=== PATIENT | male | born 1995 | race Caucasian/White ===

== ENCOUNTER 2017-08-10 16:18 | Emergency (ER) | payer OTHER ==
[2017-08-10] MEDS ORDERED: Ketorolac Tromethamine 30 MG/ML VIAL ONE (16:33)
[2017-08-10 16:53] LABS: Bilirubin Negative (Negative); Blood, Urine Negative (Negative); Clarity Clear (Clear); Glucose, Urine (Dipstick) Negative (Negative); Leukocyte Negative (Negative); Nitrite Negative (Negative); Protein, Urine (Dipstick) Negative (Neg-Trace)
[2017-08-10 16:55] LABS: #Basophils 0.2 thou/uL (0.0-0.2); #Eosinphils 0.1 thou/uL (0.0-0.7); #Lymphocytes 2.8 thou/uL (1.20-3.40); #Monocytes 0.7 thou/uL (0.11-0.59); #Neutrophils 7.5 thou/uL (1.40-6.50); %Basophils 1.4 % (0.0-1.0); %Eosinophils 1.3 % (0.0-10.0); %Lymphocytes 24.7 % (21.0-51.0); %Monocytes 6.4 % (0.0-10.0); %Neutrophils 66.3 % (42.0-75.0); Hemoglobin 16.5 g/dL (14.0-18.0); Mean Corpuscular HGB CONC 35.3 g/dL (32.0-36.0); Mean Corpuscular Hemoglobin 29.8 pg (27.0-31.0); Mean Corpuscular Volume 84.6 fl (80.0-94.0); Mean Platelet Volume 7.8 fL (7.4-10.4); Platelet Count 279 thou/uL (130-400); RBC Distribution Width 10.1 % (11.5-14.5); Red Blood Cell (RBC) Count 5.53 mill/uL (4.70-6.10); White Blood Cell (WBC) Count 11.3 thou/uL (4.8-10.8)
[2017-08-10 17:05] LABS: ALT (SGPT) 15 U/L (8-55); AST (SGOT) 24 U/L (5-34); Albumin 4.6 g/dL (3.5-5.0); Alkaline Phosphatase 80 U/L (40-150); Anion Gap 15 mmol/L (10-20); BUN (Urea Nitrogen) 16 mg/dL (8.9-20.6); Bilirubin, Total 2.8 mg/dL (0.2-1.2); Calc. Creatinine Clearance 0 mL/min (70-130); Calcium 9.9 mg/dL (7.8-10.44); Carbon Dioxide 26 mmol/L (22-29); Chloride 105 mmol/L (98-107); Estimated GFR-MDRD Greater than 90; Globulin 2.8 g/dL (2.4-3.5); Glucose 94 mg/dL (70-105); Lipase 27 U/L (8-78); Potassium 4.1 mmol/L (3.5-5.1); Protein, Total 7.4 g/dL (6.0-8.3); Sodium 142 mmol/L (136-145)
--- NOTE | 2017-08-10 17:24 | RAD ---
ABDOMEN TWO VIEWS ONE VIEW CHEST X-RAY 08/10/17 HISTORY: Pain. COMPARISON: None. FINDINGS: Lungs are clear. No pneumothorax or effusion. The cardiac silhouette and mediastinal contours are nor mal. On the upright view, no free air under the hemidiaphragms. No dilated loops of large or small bowel. No abnormal calcifications project over the renal shadows. IMPRESSION: Normal exam. POS: [facility]
--- NOTE | 2017-08-10 18:16 | ULT ---
TESTICULAR ULTRASOUND WITH DOPPLER 08/10/17 HISTORY: Pain after lifting weights. COMPARISON: None. TECHNIQUE: Real time nance scale color flow and spectral analysis of the testicles was performed with a linear tr ansducer. FINDINGS: Testicular echotexture is normal. Normal flow. Right testicle measures 2.9 x 4.9 x 3.2 cm. Left testi jesse measures 3.7 x 4.3 x 2.6 cm. Both epididymi are visualized are normal. No hypervascularity. IMPRESSION: Normal examination of the testicles. POS: [facility]
== END 2017-08-10 18:00 | disposition home or self-care (01) ==
LOC: SCSER 16:18
DX: R10.30 Lower abdominal pain, unspecified (principal)
CPT/HCPCS: 74022; 76870; 80053; 81003; 83690; 85025; 93976; 96372; J1885